=== PATIENT | female | born 1985 | race Caucasian/White ===

== ENCOUNTER 2020-06-07 14:35 | Outpatient (CLI) | payer OTHER, SELFPAY ==
[2020-06-07 15:12] LABS: Hematocrit 32.6 % (37.0-47.0); Hemoglobin 11.1 g/dL (12.0-15.0); Mean Corpuscular Hemoglobin 32.1 pg (26-34); Mean Corpuscular Volume 94.2 fl (80-100); Mean Platelet Volume 10.5 fl (7.4-10.4); Platelet Count Result 234 k/mm3 (150-375); Red Blood Count 3.46 M/mm3 (4.2-5.4); Red Cell Distribution Width 14.5 % (11.5-14.5); White Blood Count 10.2 K/mm3 (4.5-10.0)
[2020-06-08 10:38] LABS: Rapid Plasma Reagin Non-Reactive (NonReactive)
== END 2020-06-07 14:36 | disposition home or self-care (01) ==
LOC: ANHLAB 14:36
PROVIDERS: PCP Internal Medicine; Visit Provider Obstetrics & Gynecology
DX: Z34.93 Encounter for supervision of normal pregnancy, unspecified, third trimester (principal); Z3A.00 Weeks of gestation of pregnancy not specified
CPT/HCPCS: 36415; 85027; 86592; 86850; 86900; 86901

== ENCOUNTER 2020-06-08 10:14 | Inpatient (IN) | payer OTHER, SELFPAY ==
[2020-06-08] VITALS (43 sets, daily range): BP systolic 94–123; BP diastolic 42–77; PULSE 72–111; RESP 16–18; TEMP 36.4–36.8; O2SAT 95–100; BMI 31.0
--- NOTE | 2020-06-08 10:14 | LDADM ---
This patient, Moraima Valladares, was admitted to Labor/Delivery/Recovery 119 on 06/08/20 at 10:14. Plans for labor, pain management and were discussed with patient. Patient/family oriented to hospital policies and general routines including ID bracelet, bed and alarms, visiting hours, pain management, procedures, bathroom and other care routines, personal items, smoking policy, room service/diet and guest tray routines, security routines, and visiting hours. Patient/Family are encouraged to report perceived risks to care and to ask questions if they do not understand what they are told or what they should do. See OBIX for further documentation.
[2020-06-08] MEDS: LACTATED RINGERS 1,000 ML 125 ML IV CONT ×2 (10:45→11:27)
--- NOTE | 2020-06-08 11:34 | WPDANESEPPF ---
Anes - Initial Pre Proc Eval Procedure: Operation Date: 06/08/20 13:30 Proposed Procedures p Repeat Section With Bilateral Tubal Ligation - Satya Mccarthy MD Date/Time: 06/08/20 11:34 Surgeon: Satya Mccarthy MD Pre Op Diagnosis: Previous ,Desires Sterilization Patient Data Age: 34 Gender: F Height: 1.63 m Weight: 82 kg Last Vital Signs Pulse 77 06/08/20 11:02 BP 120/71 06/08/20 11:02 Pulse Ox 98 06/08/20 11:20 Allergies Allergy/AdvReac Type Severity Reaction Status Date / Time No Known Allergies Allergy Verified 06/08/20 11:28 Home Medications Medication Instructions Recorded Confirmed Type PNV cmb#95-ferrous fumarate-FA 1 tablet PO DAILY 05/19/20 06/08/20 History [] ibuprofen 600 mg PO Q6H PRN #30 tablet 06/08/20 Rx ferrous sulfate 325 mg PO DAILY #30 tablet 06/09/20 Rx hydrocodone-acetaminophen [[place]] 1 - 2 tablet PO Q6H PRN #30 tablet 06/09/20 Rx Patient hx anesthesia problems: none Family hx anesthesia problems: none PMFSH Surgical History Surgical History (Updated 06/08/20 @ 11:53 by Satya Mccarthy MD) History of delivery Family History Family History Father Hypertension Mother Hypertension Social History Social History Smoking status: Never smoker Second hand tobacco smoke exposure: No Substance use: never Gender identity (if verbalized by the patient): Female Spiritual care concerns: No Anes - Eval Final PreProcedure Day of Procedure 06/08/20 11:34 Patient weight: overweight Heart: regular rate and rhythm Lungs: clear to auscultation and normal air movement Airway: Mallampati scale class II Neurological: alert and oriented Last oral intake: >/= 8 hours ASA classification: II Emergent: no Anesthetic plan: proceed Anesthesia type and monitoring: regional spinal Informed Consent: The patient's anesthetic plan and its attendant risks and benefits were discussed with the patient/family/POA. Questions were solicited and answers provided to the satisfaction of the patient/family/POA.
--- NOTE | 2020-06-08 11:50 | PM.IMHP ---
H&P: HPI History of Present Illness Date/Time: 06/08/20 11:50 Chief Complaint: Repeat c section Narrative: 34 y/o at 39 weeks here for scheduled repeat . Also desires permanent contraception with tubal ligation. essentially uncomplicated. Review of Systems Review of Systems: All systems reviewed & are unremarkable except as noted in HPI and below PMFSH Surgical History Surgical History History of delivery Family History Family History Father Hypertension Mother Hypertension Social History Social History Smoking status: Never smoker Second hand tobacco smoke exposure: No Substance use: never Gender identity (if verbalized by the patient): Female Spiritual care concerns: No Meds Home Medications and Allergies Home Medications Medication Instructions Recorded Confirmed Type PNV cmb#95-ferrous fumarate-FA 1 tablet PO DAILY 05/19/20 06/08/20 History [] Allergies Allergy/AdvReac Type Severity Reaction Status Date / Time No Known Allergies Allergy Verified 06/08/20 11:28 Vital Signs Vital Signs - 24 hr 06/08/20 11:02 06/08/20 11:07 06/08/20 11:12 Pulse Rate 77 Blood Pressure 120/71 Pulse Oximetry 98 100 06/08/20 11:17 06/08/20 11:20 Pulse Rate Blood Pressure Pulse Oximetry 99 98 Exam Const: Orientation/consciousness: patient oriented x3 Other: Well-developed, well-nourished female in no acute distress. Neck: Thyroid: thyroid normal Lymphatic: no lymphadenopathy noted (in neck, axilla or inguinal nodes) Resp: Effort & Inspection: normal respiratory effort Auscultation: clear to auscultation bilaterally Cardio: Rate: regular rate Rhythm: regular rhythm Heart sounds: S1 normal heart sound present and S2 normal heart sound present GI: Other: ABD: Soft, nontender, nondistended, gravid. FHR auscultated. No guarding or rebound tenderness. No hepatosplenomegaly. : General: Yes no CVA tenderness Other: Cervix closed. Back/Spine/Pelvis: Back: no CVA tenderness Skin: General skin exam: normal color and no rashes or lesions noted Neuro: General: patient oriented x3 Extrem: Other: Extremities: nontender with no edema Psych: Mental Status: mental status grossly normal Affect: normal affect Assessment and Plan Assessment and plan (1) History of delivery: Code(s): Z98.891 - History of uterine scar from previous surgery Status: Acute Assessment and Plan: A: IUP at 39 weeks with prior , desiring repeat. Also desires permanent sterilization. P: She understands there are temporary methods of contraception available to her. She understands that there are nonsurgical options as well as surgical options. She understands that tubal ligation will render her permanently sterile. She understands that there is a failure rate associated with tubal ligation, as well as an inherent ectopic gestation risk. Furthermore, she understands risks of surgery to include risks of anesthesia, risks of pain, infection, bleeding, blood products, thromboembolic phenomena and damage to adjacent structures such as bowel, bladder, ureters, blood vessels and nerves. She understands all these risks and elects to proceed with repeat low transverse delivery with concurrent bilateral tubal ligation. She has received the ACOG pamphlet on surgical sterilization. (2) Unwanted fertility: Code(s): Z30.09 - Encounter for other general counseling and advice on contraception Status: Acute
--- NOTE | 2020-06-08 12:02 | WPDHPUPDATE1 ---
History and Physical Update Update Date/Time: 06/08/20 12:02 History and Physical has been reviewed, including an updated exam of the patient. There are NO changes in the patient's condition. Risks, benefits, and alternatives have been discussed and questions answered. Patient agrees to proceed with procedure.
[2020-06-08] MEDS: ceFAZolin 2 GM/D5W 50 ML 2 GM/50 ML BAG IVPB (12:05)
--- NOTE | 2020-06-08 13:15 | P.PCNOB_ITS ---
OB - Delivery Note Procedure Delivery date: 06/08/20 Procedure: Procedures Operation Date: 06/08/20 13:30 <No data on this case meets the specified criteria> Repeat low transverse delivery Delivery monitor: external FHT and external uterine Route of delivery: Specimen: Yes (cord blood) Quantitative Blood Loss (ml): 203 Anesthesia type: Spinal Disposition: PACU Complications: None Narrative: The patient was taken to the operating room where she was prepared and draped in the usual sterile fashion in dorsal supine position with a leftward tilt. She received cefazolin preoperatively. Spinal anesthesia was found to be adequate. A Pfannenstiel skin incision was made along the previous scar line and was carried through to the underlying layer of the fascia. The fascia was incised in the midline and the incision was extended laterally. The fascia was dissected free of the underlying rectus muscles. The rectus muscles were in the midline. The peritoneum was identified, tented up and entered sharply. The peritoneal incision was extended superiorly and inferiorly with good visualization of the bladder. The bladder blade was placed. The vesicouterine peritoneum was identified, tented up and entered sharply. The incision was extended laterally and the bladder flap was developed. The bladder blade was replaced. The uterus was then incised sharply in a transverse fashion along the lower uterine segment. The incision was extended laterally. The infant's head was delivered atraumatically to the sterile field, followed by the body. The nose and mouth were bulb suctioned. After a delay, the cord was clamped and cut. The was handed off the field. Cord blood was collected. The placenta was removed manually and was passed off the field. The uterus was exteriorized and cleared of all clots and debris. The uterine incision was reapproximated using 0 Monocryl in a running, locked fashion. A second, imbricating layer of the same suture was placed. Excellent hemostasis resulted as did excellent reapproximation of the normal anatomy. The uterus was returned the abdomen. The pelvis was irrigated copiously with warmed normal saline. Rigorous hemostasis was assured. The fascial layer was reapproximated using 0 Vicryl in a running fashion. The skin was closed with a running, subcuticular stitch of 4 0 Vicryl. Dermaflex was applied externally. Sponge, lap, needle and instrument counts were correct. The patient was taken to the recovery room in stable condition. The went to the nursery in stable condition. I was present and scrubbed the entire procedure. [place] Baby Date of : 06/08/20 Time of : 12:37 Weeks of gestation at delivery: 39 Infant gender: Male Weight (pounds): 7 Weight (ounces): 9 Placenta delivery description: Manual Removal and Normal Configuration cord vessel description: 3 Vessels and Delayed Cord Clamping score one minute: 9 score five minutes: 9
--- NOTE | 2020-06-08 13:19 | PM.OBDSVD ---
DS: Admitting Diagnosis Admitting Diagnosis Admitting Diagnosis: IUP at 39 weeks Prior DS: Discharge Diagnosis Discharge Diagnosis (1) History of delivery: Code(s): Z98.891 - History of uterine scar from previous surgery Status: Acute OB - DS: Summary OB Procedures : None OB Procedures Intrapartum: OB Procedures: : None Peripartum Data Procedures: Procedures Operation Date: 06/08/20 13:30 <No data on this case meets the specified criteria> Repeat LTCS Discharge Plan Discharge Attending physician on discharge: Shari Consulting providers: Omar Chacon Discharging Clinician: Shari Patient Disposition: Home, Self-Care Activity: may shower, no straining, may drive after 2 weeks and pelvic rest Diet: regular Wound Care Instructions: follow printed instructions and incision open to air Discharge Instructions: Education: Mom and Baby Guide Given to: Mother Follow-Up: Call your delivering provider's office for an appointment to be seen in: 4 Weeks Mom and baby should come to the [facility] for the follow-up appointment. Appointment Date/Time: June 10, 2020 at 11:00 am Call [phone] if you are unable to keep your appointment time. BREAST CARE: * Wear a snug supportive bra. * For engorgement discomfort: Breast Feeding: * Apply warm moist washcloths * Express milk as needed to relieve engorgement * Wear loose clothing Bottle Feeding: * May apply ice packs * For sore nipples: * Identify correct latch-on * Apply warm moist washcloths before and after nursing * Air dry nipples after nursing * May apply Lansinoh cream to nipples ABDOMINAL INCISION: (if applicable) * Allow incision to air dry * Do NOT use lotions for powders on your incision * When showering, allow soap and water to run over the incision, but do not wash incision PERINEAL CARE: * Until bleeding stops, use your lawrence bottle after urinating * Change your pad frequently throughout the day * You may take sitz baths several times a day (fill your bathtub with warm water and soak for 20 minutes.) Do NOT bathe in the water * No tub baths until seen by your physician - You may shower ACTIVITY: * Rest as much as possible. * Do not exercise or lift anything heavier than your baby (such as laundry or other children.) * Avoid stairs or driving as much as possible. * Do not put anything into the vagina. No douching, tampons, or sexual activity until seen by physician. NOTIFY PHYSICIAN IF YOU HAVE ANY QUESTIONS OR IF ANY OF THE FOLLOWING SYMPTOMS OCCUR: * If your episiotomy or incision becomes red, swollen, or more painful than what you have experienced in the hospital. * If your vaginal bleeding becomes foul smelling. * If your vaginal bleeding becomes more heavy than a period or if your bleeding changes from pink to bright red. However, you may pass an occasional walnut-sized clot once or twice for the first week . * If you experience a sharp, shooting pain in you calves. * If you discover a hard, reddened area on your breast or if you experience flu-like symptoms. DIET: * Eat regular, well-balanced meals. * Drink plenty of fluids daily. If , drink to thirst. Per Dr. Clarita Shaikh, Call or return if temperature above 100.4? F, increased abdominal pain, increased vaginal bleeding or any new problems. Follow-up/Referrals: Satya Mccarthy MD [Physician] - 4 Weeks Discharge Medications: New ibuprofen 600 mg tablet 600 mg PO Q6H PRN (Reason: cramps) Qty: 30 RF: 0 hydrocodone-acetaminophen [[place]] 5-325 mg tablet 1 - 2 tablet PO Q6H PRN (Reason: pain) Qty: 30 RF: 0 ferrous sulfate 325 mg (65 mg iron) tablet 325 mg PO DAILY Qty: 30 RF: 0 Continued PNV cmb#95-ferrous fumarate-FA [] 28
[2020-06-08] MEDS: OXYTOCIN 30 UNITS/NS 500 ML 30 UNITS/500 ML BAG 125 UNITS IV CONT (14:38)
[2020-06-08] MEDS: diphenhydrAMINE HCl INJ 50 MG/ML VIAL 12.5 MG IV PUSH (15:13)
--- NOTE | 2020-06-08 15:38 | OBPPTRN ---
Patient transferred to post room #283 via stretcher. Support person present. Oriented to unit, room, information board, rooming in, admission packet and security measures. Patient verbalizes understanding. Call light within reach.
[2020-06-08] MEDS: valACYclovir HCL 500 MG TABLET 2000 MG PO (17:20)
[2020-06-09] MEDS: valACYclovir HCL 500 MG TABLET 2000 MG PO (05:00)
[2020-06-09] MEDS: IBUPROFEN 600 MG TABLET PO ×3 (05:00→23:40)
[2020-06-09] MEDS: HYDROcodone/acetaminophen (*CRX) 5-325 MG TABLET 1 TAB PO ×4 (05:00→23:40)
[2020-06-09 05:26] LABS: Basophils Percent Auto 0.2 % (0.2-1.2); Eosinophils Percent Auto 0.3 % (0-4.4); Hematocrit 28.4 % (37.0-47.0); Hemoglobin 9.6 g/dL (12.0-15.0); Immature Granulocyte Absolute 0.13 K/mm3 (0.00-0.031); Immature Granulocyte Percent A 0.8 % (0-0.5); Lymphocytes Absolute Auto 1.74 K/mm3 (0.9-3.2); Lymphocytes Percent Auto 10.9 % (18.3-44.2); Mean Corpuscular HGB Conc 33.8 g/dl (32-36); Mean Corpuscular Hemoglobin 32.5 pg (26-34); Mean Corpuscular Volume 96.3 fl (80-100); Mean Platelet Volume 10.7 fl (7.4-10.4); Monocytes Absolute Auto 1.7 K/mm3 (0.1-0.6); Monocytes Percent Auto 10.6 % (2.6-8.5); Neutrophils Absolute Auto 12.3 K/mm3 (1.3-6.7); Neutrophils Percent Auto 77.2 % (45.5-73.1); Platelet Count Result 197 k/mm3 (150-375); Red Blood Count 2.95 M/mm3 (4.2-5.4); Red Cell Distribution Width 14.5 % (11.5-14.5); White Blood Count 15.9 K/mm3 (4.5-10.0)
[2020-06-09 07:45] VITALS: BP 102/65; PULSE 70; RESP 18; TEMP 37.1; O2SAT 98
[2020-06-09] MEDS: DOCUSATE SODIUM 100 MG CAPSULE PO ×2 (08:07→16:55)
[2020-06-09] MEDS: MULTIVIT/MIN/PREN/FOL AC/IRON TABLET 1 TAB PO (08:07)
[2020-06-09] MEDS: SIMETHICONE 80 MG TAB.CHEW PO (08:07)
[2020-06-09] MEDS: POLYSACCHARIDE IRON COMPLEX 150 MG CAPSULE PO ×2 (08:08→16:55)
--- NOTE | 2020-06-09 08:12 | WPDANLDPN2 ---
Anes-Prog Note L&D Date/Time: 06/09/20 08:12 Comfortable throughout: section Neuraxial method: spinal Epidural/Spinal procedure site: clean & non-tender Neuro status: Neuro function grossly intact. Cardiovascular status: normal Respiratory status: normal Airway patency: baseline Mental status: baseline Post-Op hydration status: normal Vital Signs: Last Vital Signs Temp 36.8 C 06/08/20 23:00 Pulse 89 06/08/20 23:00 Resp 16 06/08/20 23:00 BP 108/65 06/08/20 23:00 Pulse Ox 99 06/08/20 17:25 Pain score (VAS): 3 I/O: Intake & Output 06/08/20 06/09/20 06/09/20 23:59 07:59 15:59 Intake Total 4000 2300 Output Total 1350 1600 Balance 2650 700 Post-procedural complaints: pruritis mild, no treatment Patient feedback: Patient satisfied with anesthetic care.
--- NOTE | 2020-06-09 08:13 | WPDANLDNPN2 ---
Anes-Prog Note L&D-Neuraxial Date/Time: 06/09/20 08:13 Neuraxial medications: intrathecal PF morphine Opiod-related complaints: pruritis mild, no treatment Patient feedback: Patient satisfied with post-operative pain management.
--- NOTE | 2020-06-09 09:04 | P.PNOB_ITS ---
OB - PN: Subj Subjective Date/time seen: 06/09/20 09:04 Narrative: Pain OK. Tolerating diet. Would like circ for son. OB - PN: Obj Data Labs CBC & Chem 7: 06/09/20 05:08 Labs: Laboratory Results - last 24 hr 06/09/20 05:08 WBC 15.9 H RBC 2.95 L Hgb 9.6 L Hct 28.4 L MCV 96.3 MCH 32.5 MCHC 33.8 RDW 14.5 Plt Count 197 MPV 10.7 H Immature Gran % (Auto) 0.8 H Neut % (Auto) 77.2 H Lymph % (Auto) 10.9 L [place] % (Auto) 10.6 H Eos % (Auto) 0.3 Baso % (Auto) 0.2 Lymph # (Auto) 1.74 [place] # (Auto) 1.7 H Eos # (Auto) 0.0 Baso # (Auto) 0.0 Abs Immat Gran (auto) 0.13 H Absolute Neuts (auto) 12.3 H Absolute Nucleated RBC 0.0 Nucleated RBC % 0.0 OB - PN A/P Plan Comments: A: POD#1, doing well. P: Routine care. Reviewed circ. Exam Narrative: Exam Narrative: AVSS I/O OK ABD soft, nontender, fundus firm. Incision c/d/i. EXT nontender
[2020-06-09 11:35] VITALS: BP 106/62; PULSE 81; RESP 18; TEMP 36.4; O2SAT 100
--- NOTE | 2020-06-09 12:04 | PC.NURSE ---
1100 Breast feeding note; baby sleeping skin to skin with mother; mother reports breast feeding at 0940, stating baby is latching now, and breast feeding better. She reports some difficulty on her L side; nurse encouraged her to call for her nurse or LC to come at next feeding to assist and evaluate. Mother agreed. Mother reports baby is latching, maintaining latch and nursing. Reviewed q2-3 and on demand feedings, waking infant if needed. Mother had no questions for LC at this time. Both parents attentive to instruction given, and voiced understanding.
[2020-06-09 19:19] VITALS: BP 108/64; PULSE 83; RESP 16; TEMP 36.8
[2020-06-10] MEDS: HYDROcodone/acetaminophen (*CRX) 5-325 MG TABLET 1 TAB PO ×3 (05:40→11:49)
[2020-06-10] MEDS: IBUPROFEN 600 MG TABLET PO ×2 (05:40→11:50)
--- NOTE | 2020-06-10 07:28 | PM.OBPNVD ---
OB - PN: Subj Subjective Date/time seen: 06/10/20 07:28 Patient comments: no complaints and pain well controlled baby status: doing well and nursing well OB - PN: Obj Data Labs CBC & Chem 7: 06/09/20 05:08 OB - PN A/P Plan day: 2 Plan: routine care, discharge home and follow up 6 weeks (4 weeks) Time Spent With Patient Time: Total time spent is greater than 50% in coordination of care (as documented) at patient's floor/unit and/or counseling patient: Time with patient: less than 15 minutes Review of Systems Review of Systems: All systems reviewed & are unremarkable except as noted in HPI and below Exam Const: General: no acute distress Eyes: General: appearance normal, both eyes and all related structures Neck: Neck: supple and no JVD Thyroid: thyroid normal Resp: Effort & Inspection: normal respiratory effort Auscultation: clear to auscultation bilaterally Cardio: Rate: regular rate Rhythm: regular rhythm GI: Inspection: normal to inspection and incision (cdi) : General: Yes bladder normal to palpation External Female Exam: normal external appearance Speculum Exam - Vagina: normal vaginal discharge and No vaginal bleeding Speculum Exam - Cervix: nontender Bimanual exam- vagina & uterus: bladder normal to palpation and No Cervical tenderness present OB/external & speculum: No vaginal bleeding Skin: General skin exam: no rashes or lesions noted Extrem: General: normal to inspection and no edema Psych: Mental Status: mental status grossly normal Affect: normal affect
--- NOTE | 2020-06-10 07:29 | PM.DS ---
DS: Admitting Diagnosis Admitting Diagnosis Admitting Diagnosis: term iup prev section sterilization DS: Summary Hospital Course Hospital Course: Patient was admitted for repeat section tubal ligation her hospital course was unremarkable. She remained afebrile. She was up, without difficulty, passing gas, eating, ambulating, and generally not complaints. Time Spent with Patient Time attestation: Total time spent providing and/or coordinating discharge services: Exam Const: General: no acute distress Eyes: General: appearance normal, both eyes and all related structures Neck: Neck: supple and no JVD Thyroid: thyroid normal Resp: Effort & Inspection: normal respiratory effort Auscultation: clear to auscultation bilaterally Cardio: Rate: regular rate Rhythm: regular rhythm GI: Inspection: non-distended GI Palp: Yes Soft to palpation, No Tenderness to palpation present (GI) and No Guarding due to palpation present (GI) Auscultation: normal bowel sounds : General: Yes bladder normal to palpation External Female Exam: normal external appearance Speculum Exam - Vagina: normal vaginal discharge and No vaginal bleeding Speculum Exam - Cervix: nontender Bimanual exam- vagina & uterus: bladder normal to palpation and No Cervical tenderness present OB/external & speculum: No vaginal bleeding Skin: General skin exam: no rashes or lesions noted Extrem: General: normal to inspection and no edema Psych: Mental Status: mental status grossly normal Affect: normal affect Discharge Plan Discharge Attending physician on discharge: Shari Discharging Clinician: Shari Patient Disposition: Home, Self-Care Activity: may shower, no straining, may drive after 2 weeks and pelvic rest Diet: regular Wound Care Instructions: follow printed instructions and incision open to air Discharge Instructions: Call or return if temperature above 100.4? F, increased abdominal pain, increased vaginal bleeding or any new problems. Stand Alone Forms: General Discharge Information Follow-up/Referrals: Satya Mccarthy MD [Physician] - 4 Weeks Discharge Medications: New ibuprofen 600 mg tablet 600 mg PO Q6H PRN (Reason: cramps) Qty: 30 RF: 0 hydrocodone-acetaminophen [[place]] 5-325 mg tablet 1 - 2 tablet PO Q6H PRN (Reason: pain) Qty: 30 RF: 0 ferrous sulfate 325 mg (65 mg iron) tablet 325 mg PO DAILY Qty: 30 RF: 0 Continued PNV cmb#95-ferrous fumarate-FA [] 28 mg iron- 800 mcg Tablet 1 tablet PO DAILY RF: 0 Date of admission: 06/08/20 10:14 Primary Care Provider: AliciaCatarino Admitting Provider: Satya Mccarthy Attending physician on admission: Satya Mccarthy Condition: Stable
[2020-06-10 08:55] VITALS: BP 103/61; PULSE 72; RESP 18; TEMP 36.3; O2SAT 99
[2020-06-10] MEDS: MULTIVIT/MIN/PREN/FOL AC/IRON TABLET 1 TAB PO (08:58)
[2020-06-10] MEDS: SIMETHICONE 80 MG TAB.CHEW PO (08:58)
[2020-06-10] MEDS: DOCUSATE SODIUM 100 MG CAPSULE PO (08:58)
[2020-06-10] MEDS: POLYSACCHARIDE IRON COMPLEX 150 MG CAPSULE PO (08:58)
--- NOTE | 2020-06-10 16:16 | PC.NURSE ---
2874 Breast feeding note; visited with parents; baby had just eaten; mother reports he will sometimes latch to feed and sometimes not. She seems to be relaxed about it, and bottle feeds him large amounts if he does not breast feed. Nurse encouraged her to pump at each feeding baby does not breast feed to help get her milk in. Reviewed care of breasts through engorgement, and frequency of feedings. Pt has Mother Baby Guide for home reference and LC contact information. Parent have an appointment this afternoon for baby to have frenulectomy. Nurse offered to come and be present at baby's next feeding. Parents attentive, and voiced understanding of information shared.
[2020-06-11 10:55] VITALS: BP 119/70; PULSE 77; RESP 16; TEMP 37.2; O2SAT 100
== END 2020-06-10 13:11 | disposition home or self-care (01) | DRG 788 ==
LOC: ANHLDR 13:21 → ANHOB2 06-09 12:46 → ANHLDR 06-14 07:38 → ANHOB2 06-14 07:38
PROVIDERS: Admitting Provider Obstetrics & Gynecology; PCP Internal Medicine; Visit Provider Obstetrics & Gynecology
PROC: 10D00Z1 Extraction of Products of Conception, Low, Open Approach (ICD-10-PCS; CPT 59514; principal; 2020-06-08 13:30)
DX: O34.211 Maternal care for low transverse scar from previous cesarean delivery (principal); O69.2XX0 Labor and delivery complicated by other cord entanglement, with compression, not applicable or unspecified; R55 Syncope and collapse; Z3A.39 39 weeks gestation of pregnancy; Z37.0 Single live birth
CPT/HCPCS: 36415; 85025; A9270; J0690; J1200; J2274; J2590; J3010; J7120

== ENCOUNTER 2024-07-09 13:59 | Outpatient (CLI) | payer OTHER, SELFPAY | END 2024-07-09 14:00 | disposition home or self-care (01) | LOC: CHSIMG 13:59 | PROVIDERS: PCP Internal Medicine; Visit Provider Obstetrics & Gynecology | DX: Z12.31 Encounter for screening mammogram for malignant neoplasm of breast (principal); R92.8 Other abnormal and inconclusive findings on diagnostic imaging of breast | CPT/HCPCS: 77063; 77067 ==

== ENCOUNTER 2024-08-20 10:09 | Outpatient (CLI) | payer OTHER, SELFPAY ==
--- NOTE | ~2024-08-20 | MMUS_ITS ---
EXAMINATION: MM diagnostic soheila RT w samara, US breast RT limited HISTORY: Follow-up right breast asymmetry TECHNIQUE: Additional 3-D tomosynthesis images of the right breast were performed and synthetic 2-D i mages were generated. CAD analysis was submitted and interpreted. High resolution Limited right breas t ultrasound was performed. COMPARISON: No prior studies for comparison. BREAST PARENCHYMAL COMPOSITION: Not dense: There are scattered areas of fibroglandular density. FINDINGS: MAMMOGRAPHIC FINDINGS: There is asymmetry of the subareolar location the right breast with possible architectural distortion . There are no suspicious calcifications. ULTRASOUND: Limited right breast ultrasound in the periareolar location of the right breast at 7:00 there is a 5 mm hypoechoic mass with posterior shadowing. IMPRESSION: 1. Subareolar/periareolar right breast mass at 7:00 measuring 5 mm with posterior shadowing. 2. Ultrasound-guided right breast biopsy recommended. BI-RADS category 4, suspicious findings. Reviewed, dictated and finalized at location A. IMPRESSION: 1. Subareolar/periareolar right breast mass at 7:00 measuring 5 mm with posteri or shadowing. 2. Ultrasound-guided right breast biopsy recommended. BI-RADS category 4, suspicious findings.
--- OUTSIDE RECORDS SUMMARY | 2024-08-20 10:50 | XMS_ITS | Clinical Summary ---
Author Organization [facility] Medical Office Building [address] Address [address] [place] [address] Care Team Providers Care Prison Warden Name Role Phone Catarino Hewitt MD Primary Care Provider Allergies No known active allergies Medications cyanocobalamin, vitamin B-12, 1,000 mcg/mL kit Inject 1,000 mcg as directed every 30 (thirty) days Active magnesium chloride 64 mg of elemental magnesium delayed release tabletIndications: hypomagnesemia Take 1 tablet (64 mg of elemental magnesium total) by mouth Active fish oil-dha-epa 1,200-144-216 mg capsule Take by mouth Active riboflavin, vitamin B2, 25 mg tablet Take by mouth Active Low-Ogestrel, 28, 0.3-30 mg-mcg per tablet Take 1 tablet by mouth daily Active ondansetron (ZOFRAN) 4 mg tablet TAKE 1 TABLET BY MOUTH TWICE A DAY NEEDED FOR NAUSEA Active valACYclovir (VALTREX) 1 gram tablet TAKE 2 TABLETS BY MOUTH EVERY 12 HOURS NEEDED FOR OUTBREAK Active rizatriptan GROUNDMAN/LINEMAN (MAXALT-GROUNDMAN/LINEMAN) 10 mg disintegrating tabletIndications: Chronic migraine w/o aura w/o status migrainosus, not intractable DISSOLVE 1 TABLET BY MOUTH EVERY 2 HOURS NEEDED FOR MIGRAINE. MAX 3 TABS PER 24 HOURS 9 tablet 11 4 Active topiramate (TOPAMAX) 50 mg tabletIndications: Chronic migraine w/o aura w/o status migrainosus, not intractable Take 1 tablet (50 mg total) by mouth 2 (two) times a day 180 tablet 1 5 Active Active Problems Problem Noted Date Diagnosed Date Chronic migraine w/o aura w/ o status migrainosus, not intractable 08/13/2023 Medical History Medical History Date Comments Migraine Headache, tension-type Family History Medical History Relation Name Comments Hypertension Father Diabetes Mother Hypertension Mother Relation Name Status Comments Father Mother Social History Tobacco Use Types Packs/Day Years Used Date Smoking Tobacco: Never Smokeless Tobacco: Never Tobacco Cessation:Counseling Given: Not Answered Personal Safety Answer Date Recorded Getting School Help Needed Not on file 05/21 Comments Unknown Sex and Gender Information Value Date Recorded Sex Assigned at Not on file 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 Gender Identity Not on file Sexual Orientation Not on file Obstetrics History Last Filed Vital Signs Vital Sign Reading Time Taken Comments Blood Pressure 154/82 11/26/2023 10:19 AM CDT Pulse 68 11/26/2023 10:19 AM CDT Temperature - - Respiratory Rate - - Oxygen Saturation 100% 11/26/2023 10:19 AM CDT Inhaled Oxygen Concentration - - Weight 60.3 kg (133 lb) 11/26/2023 10:19 AM CDT Height 162.6 cm (5' 4 ) 11/26/2023 10:19 AM CDT Body Mass Index 22.83 11/26/2023 10:19 AM CDT Plan of Treatment Health Maintenance Due Date Last Done Comments Breast Cancer Screening-Mammogram 1983 Cervical Cancer Screening 1983 Depression Screening 1983 Hepatitis C Screening 1983 Varicella Vaccines (1 of 2 - 13+ 2-dose series) 07/19/1996 Hepatitis B Screening 07/19/2001 Regular Well Visit/Exam 18-64 07/19/2001 Covid-19 Vaccine (3 - 2023-2 5 season) 2024 08/16/2020, 07/22/2020 Influenza Vaccine (Season Ended) 2025 03/24/2020 DTaP/Tdap/Td Vaccine (3 - Td or Tdap) 03/24/2030 03/24/2020, 08/16/2015 HPV Vaccines Aged Out No longer eligi ble based on patient's age to complete this topic Pneumococcal vaccine <65 Aged Out No longer eligible based on patient's age to complete this topic Insurance [facility] CHOICE PLUS [facility] HMO/PPO Address: [facility] [address] [place] [address] Care Teams Prison Warden Relationship Specialty Start Date End Date Catarino Hewitt MD PCP - General Internal Medicine 03/28/23
--- OUTSIDE RECORDS SUMMARY | 2024-08-20 10:50 | XMS_ITS | Clinical Summary ---
Author Organization [facility] Address [address] [place] [address] Care Team Providers Care Pathology Specialist Name Role Phone Catarino Hewitt MD Primary Care Provider [phone] Gaurang Brunner MD Unavailable [phone] Source Comments [facility],non-owned Affiliates and Associated Physician Practices is amultiple site organization consisting of ambulatory clinics and hospital sitesin [place], [place], [place] and [place]. This disclosure is being madepursuant to the Care Everywhere program and may not contain all information available regarding this patient. Last updated 18.[facility] Allergies No known active allergies Medications * Be aware that medications may not be up to date on this document. Alwaysverify current medications with the patient. Medication Sig Dispensed Refills Start Date End Date Status traMADol (ULTRAM) 50 MG tablet Take 1 TID as needed for pain. 12 Tab 0 03/24/2012 Active LOW-OGESTREL 0.3-30 MG-MCG tablet 01/07/2019 Active raNITIdine HCl (RANITIDINE 150 MAX STRENGTH PO) Active Active Problems Problem Noted Date Diagnosed Date Syncope and collapse 01/25/2019 Social History Tobacco Use Types Packs/Day Years Used Date Smoking Tobacco: Never Smokeless Tobacco: Never Sex and Gender Information Value Date Recorded Sex Assigned at Not on file Gender Identity Not on file Sexual Orientation Not on file Last Filed Vital Signs Vital Sign Reading Time Taken Comments Blood Pressure 131/87 02/16/2019 10:39 AM CDT Pulse 74 02/16/2019 10:39 AM CDT Temperature 35.9 C (96.6 F) 02/16/2019 10:39 AM CDT Respiratory Rate 14 03/24/2012 4:35 PM GROUNDSKEEPING MAINTENANCE WORKER Oxygen Saturation 98% 02/16/2019 10:39 AM CDT Inhaled Oxygen Concentration - - Weight 63.5 kg (140 lb) 02/16/2019 10:39 AM CDT Height 165.1 cm (5' 5 ) 03/24/2012 11:53 AM GROUNDSKEEPING MAINTENANCE WORKER Body Mass Index 23.3 03/24/2012 11:53 AM GROUNDSKEEPING MAINTENANCE WORKER Plan of Treatment Health Maintenance Due Date Last Done Comments LIPID TESTING 1983 MAMMOGRAM 1983 PAP SMEAR 1983 HIV SCREENING 07/19/1998 HEPATITIS C SCREENING 07/15/2001 DTAP/TDAP/TD VACCINES (1 - Tdap) 07/19/2002 HEPATITIS B VACCINE (1 of 3 - 19+ 3-dose series) 07/19/2002 COVID-19 VACCINE (1 - 2023-2 5 season) 2024 DEPRESSION SCREENING 05/13/2024 INFLUENZA VACCINE (Season Ended) 2025 ZOSTER VACCINE (1 of 2) 07/19/2033 HIB VACCINE Aged Out No longer eligi ble based on patient's age to complete this topic HPV VACCINE Aged Out No longer eligi ble based on patient's age to complete this topic MENINGOCOCCAL (Group B) VACC INE SHARED DECISION-MAKING Aged Out No longer eligibl e based on patient's age to complete this topic MENINGOCOCCAL GROUPS A/C/Y/W VACCINE Aged Out No longer eligible b ased on patient's age to complete this topic PNEUMOCOCCAL VACCINE Aged Out No long er eligible based on patient's age to complete this topic Care Teams Pathology Specialist Relationship Specialty Start Date End Date Catarino Hweitt MD PCP - General Internal Medicine 01/08/19 [place] [id number] [address] Consulting Physician Cardiac Electrophysiology 08/17/19
--- OUTSIDE RECORDS SUMMARY | 2024-08-20 10:50 | XMS_ITS | Referral Summary ---
Author Organization [facility] Medical Office Building B Address [address] [place] [address] Care Team Providers Care Line Decorator Name Role Phone Catarino Hewitt MD Primary [...] 12 HOURS NEEDED FOR OUTBREAK Active rizatriptan SNOUT PULLER (MAXALT-SNOUT PULLER) 10 mg disintegrating tabletIndications: Chronic migraine w/o [...] w/ o status migrainosus, not intractable 08/13/2023 Social History Tobacco Use Types Packs/Day Years Used Date Smoking Tobacco: Never Smokeless Tobacco: Never Tobacco Cessation:Counseling Given: Not Answered Personal Safety Answer Date Recorded Getting School Help Needed Not on file 05/21 Comments Unknown Sex and Gender Information Value Date Recorded Sex Assigned at Not on file 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
== END 2024-08-20 10:10 | disposition home or self-care (01) ==
LOC: CHSIMG 10:12
PROVIDERS: PCP Internal Medicine; Visit Provider Obstetrics & Gynecology
DX: R92.8 Other abnormal and inconclusive findings on diagnostic imaging of breast (principal)
CPT/HCPCS: 76642; 77061; 77065; G0279

== ENCOUNTER 2025-04-01 09:45 | Outpatient (CLI) | payer OTHER, SELFPAY ==
--- NOTE | ~2025-04-01 | XR_ITS ---
Examination: XR hip LT 2V w AP pelvis Clinical History: HIp pain Comparison: None Technique: AP pelvis, 2 views left hip Findings/impression: 1. No fracture or dislocation left hip. 2. No pelvic fracture. Reviewed, dictated and finalized at location R. OSAL ANALYST
--- NOTE | ~2025-04-01 | XR_ITS ---
XR_[id number]_CR Indication: Neck pain Comparison: None Findings: The vertebral heights are intact. No fracture or subluxation. The disc heights are intact. Soft tissues unremarkable Impression: No acute abnormality. Reviewed, dictated and finalized at location P. TING INSPECTOR Impression: No acute abnormality.
--- NOTE | ~2025-04-01 | XR_ITS ---
EXAMINATION: XR shoulder RT min 2V, 04/01/2025 9:51 MARINE STRUCTURAL WELDER HISTORY: Shoulder pain COMPARISON: No comparisons available. Findings: No acute fracture or malalignment. No significant degenerative changes. Soft tissues unremarkable. Impression: No acute fracture or malalignment. Reviewed, dictated and finalized at location P. NE STRUCTURAL WELDER Impression: No acute fracture or malalignment.
--- NOTE | ~2025-04-01 | MR_ITS ---
EXAMINATION: MR brain/brain stem wo con DATE: 04/01/2025 10:55 INDICATION: Migraine headaches TECHNIQUE: Magnetic resonance imaging (MRI) of the brain and brainstem was performed without intravenous contrast. COMPARISON: None. FINDINGS: Along the superior aspect of the of the anterior falx, a 3.1 x 1.5 x 1.3 cm mass mildly hyperintense on T1, and hypointense on T2 present as measured in the cephalocaudal by and posterior by transverse dimensions. This can be seen on sagittal image 12 series 2, and on T2-weighted axial image 17 series 7. No other discrete mass seen. Mild scattered punctate areas of T2 weighted hyperintense white matter changes in both cerebral hemispheres noted. Comment no mass effect or hemorrhage seen. No restricted diffusion or acute ischemic event. Brainstem and cerebellum appear normal. Periorbital paranasal calvarial structures appear within normal limits. IMPRESSION: 1. 3.1 x 1.5 x 1.3 cm mass abutting or contiguous with the anterior falx. Findings represent meningioma or other neoplastic lesion. Correlation with contrast-enhanced sequences recommended. 2. Scattered punctate areas of hyperintense T2-weighted changes in both cerebral hemispheres are abnormal for a 39-year-old female. Findings could represent very early manifestation of chronic microvascular ischemic change but demyelinating process might also have a similar appearance. IMPRESSION: 1. Reviewed, dictated and finalized at location A. ION COORDINATOR IMPRESSION: 1. 3.1 x 1.5 x 1.3 cm mass abutting or contiguous with the anterior falx. Findi ngs represent meningioma or other neoplastic lesion. Correlation with contrast- enhanced sequences recommended. 2. Scattered punctate areas of hyperintense T2-weighted changes in both cerebra l hemispheres are abnormal for a 39-year-old female. Findings could represent v marcello early manifestation of chronic microvascular ischemic change but demyelinat ing process might also have a similar appearance. IMPRESSION: 1.
--- NOTE | ~2025-04-01 | XR_ITS ---
Lumbar spine series Indication: Lower back pain Comparison: None Technique: 3 views lumbar spine Findings: 5 nonrib-bearing lumbar-type vertebral bodies. No acute fracture. No listhesis. Vertebral bodies normal height. Disc spaces maintained. Mild degenerative changes. SI joints congruent. Sacrum intact. IMPRESSION: 1. No acute findings. Reviewed, dictated and finalized at location R. ANICAL EXPERT IMPRESSION: 1. No acute findings.
== END 2025-04-01 09:46 | disposition home or self-care (01) ==
LOC: MICIMG 09:46
DX: G43.109 Migraine with aura, not intractable, without status migrainosus (principal); M54.2 Cervicalgia; M25.511 Pain in right shoulder; M25.551 Pain in right hip
CPT/HCPCS: 70551; 72040; 72100; 73030; 73502

== ENCOUNTER 2025-04-15 15:58 | Outpatient (CLI) | payer OTHER, SELFPAY ==
--- NOTE | ~2025-04-15 | MR_ITS ---
EXAMINATION: MR brain/brain stem w con DATE: 04/15/2025 16:53 INDICATION: Falcine mass. TECHNIQUE: Magnetic resonance imaging (MRI) of the brain and brainstem was performed with 13 mL MultiHance intravenous contrast. COMPARISON: Brain MRI 04/01/2025 FINDINGS: There is prominent ossification of the anterior falx measuring 4.6 x 1.3 x 1.1 cm. The ventricles are normal in size. There is mild mucosal thickening in the ethmoid sinuses. The orbits are normal. The mastoid air cells are normal. IMPRESSION: 1. Prominent ossification of the anterior falx, which may be heterotopic ossification or less likely a meningioma. Reviewed, dictated and finalized at location E. PATROLLER IMPRESSION: 1. Prominent ossification of the anterior falx, which may be heterotopic ossifi cation or less likely a meningioma.
== END 2025-04-15 15:59 | disposition home or self-care (01) ==
DX: R93.89 Abnormal findings on diagnostic imaging of other specified body structures (principal)
CPT/HCPCS: 70552; A9577